=== PATIENT | female | born 1955 | race Caucasian/White ===

== ENCOUNTER → 2017-09-02 | Outpatient (CLI) | payer MEDICAID ==
--- NOTE | 2017-09-04 09:15 | MM ---
Reason for exam: screening (asymptomatic). Last mammogram was performed 1 year and 1 month ago. History: Patient is postmenopausal. Physical Findings: A clinical breast exam by your physician is recommended on an annual basis and results should be correlated with mammographic findings. MG Screening Mammo w CAD Bilateral CC and MLO view(s) were taken. Prior study comparison: August 11, 2016, bilateral MG screening mammo w CAD. August 09, 2015, bilateral MG screening mammo w CAD. The breast tissue is heterogeneously dense. This may lower the sensitivity of mammography. No suspicious abnormality in the right breast. Distortion is seen in the outer left breast at middle depth although the asymmetry appears similar to the exam of 2013. Additional views will be performed. This finding is changed when compared with previous exams. ASSESSMENT: Incomplete: need additional imaging evaluation, BI-RAD 0 RECOMMENDATION: Special view mammogram of the left breast. (spot CC) If lesion persists on supplemental views, image directed ultrasound is recommended. [facility] will attempt to contact patient to return for supplemental views and ultrasound if indicated.
== END | disposition home or self-care (01) ==
LOC: RADMAMWWP 11:11
PROVIDERS: ATTEND Obstetrics & Gynecology
DX: Z12.31 Encounter for screening mammogram for malignant neoplasm of breast (principal)

== ENCOUNTER → 2017-09-08 | Outpatient (CLI) | payer MEDICAID ==
--- NOTE | 2017-09-09 07:14 | MM ---
Reason for exam: additional evaluation requested from abnormal screening. Last mammogram was performed less than 1 month ago. History: Patient is postmenopausal. Physical Findings: Nurse did not find any significant physical abnormalities on exam. MG Work Up Mamm w CAD LT ML, spot compression CC, and spot compression MLO view(s) were taken of the left breast. Prior study comparison: September 02, 2017, bilateral MG screening mammo w CAD. August 11, 2016, bilateral MG screening mammo w CAD. August 09, 2015, bilateral MG screening mammo w CAD. August 08, 2014, bilateral MG screening mammo w CAD. July 20, 2013, bilateral digital screening mammo w/CAD. The breast tissue is heterogeneously dense. This may lower the sensitivity of mammography. The questioned distortion laterally disperses on additional views. These results were verbally communicated with the patient and result sheet given to the patient on 09/08/17. ASSESSMENT: Negative, BI-RAD 1 RECOMMENDATION: Routine screening mammogram of both breasts in 1 year.
== END | disposition home or self-care (01) ==
LOC: RADMAMWWP 13:31
PROVIDERS: ATTEND Obstetrics & Gynecology
DX: R92.8 Other abnormal and inconclusive findings on diagnostic imaging of breast (principal)

== ENCOUNTER → 2017-09-09 | Outpatient (CLI) | payer MEDICAID ==
--- NOTE | 2017-09-09 14:33 | BD ---
EXAMINATION TYPE: MG DEXA axial skeleton. DATE OF EXAM: 09/09/2017 COMPARISON: 2014 CLINICAL HISTORY: disorder of bone Height: 5'6 Weight: 186 FRAX RISK QUESTIONS: Alcohol (3 or more units per day): no Family History (Parent hip fracture): no Glucocorticoids (More than 3mos): no (Ex: prednisone, prednisolone, methylprednisolone, dexamethasone, and hydrocortisone). History of Fracture in Adulthood: yes Secondary Osteoporosis: 1. Type 1 Diabetes: no 2. Hyperthyroidism: no 3. Menopause before 45: no 4. Malnutrition: no 5. Chronic liver disease: no Rheumatoid Arthritis: no Current Tobacco Use: no RISK FACTORS HISTORY OF: History of Wrist Fracture: RT When: 2002 Surgery to )/Wrist (right/ When: 2002 Postmenopausal woman: MEDICATIONS: Additional Medications: blood pressure Additional History: EXAM MEASUREMENTS: Bone mineral densitometry was performed using the [employer] System. Bone mineral density as measured about the Lumbar spine is: ----- L1-L4(G/cm2): 1.409 T Score Values are as follows: ----- L2: 0.6 ----- L3: 2.4 ----- L4: 2.7 ----- L1-L4:1.9 Bone mineral density has: Decreased -4.1% since study of: 08/09/2015 Bone mineral density about the R hip (g/cm2): 0.882 Bone mineral density about the L hip (g/cm2): 0.879 T Score values are as follows: -----R Neck: -1.1 -----L Neck: -1.1 -----R Total: -0.3 -----L Total: -0.4 Bone mineral density has: Increased 3.3% since study of: 08/09/2015 IMPRESSION: Osteopenia (T Score between -2.5 and -1) as noted by T score values:Khurram Hips There is slightly increased risk of fracture and the patient may be considered for treatment. Re-Screen 2-5 years. NOTE: T-SCORE=SD OF THE YOUNG ADULT MEAN.
== END | disposition home or self-care (01) ==
LOC: RADBDWWP 08:39
PROVIDERS: ATTEND Obstetrics & Gynecology
DX: M85.89 Other specified disorders of bone density and structure, multiple sites (principal)
CPT/HCPCS: 77080

== ENCOUNTER → 2018-09-28 | Outpatient (CLI) | payer MEDICAID ==
--- NOTE | 2018-09-30 10:43 | MM ---
Reason for exam: screening (asymptomatic). Last mammogram was performed 1 year and 1 month ago. History: Patient is postmenopausal. Physical Findings: A clinical breast exam by your physician is recommended on an annual basis and results should be correlated with mammographic findings. MG 3D Screening Mammo W/Cad Bilateral CC and MLO view(s) were taken. Prior study comparison: September 08, 2017, left breast MG work up mamm w CAD LT. September 02, 2017, bilateral MG screening mammo w CAD. The breast tissue is heterogeneously dense. This may lower the sensitivity of mammography. No suspicious abnormality. No significant changes when compared with prior studies. ASSESSMENT: Negative, BI-RAD 1 RECOMMENDATION: Routine screening mammogram of both breasts in 1 year.
== END ==
LOC: RADMAMWWP 07:13
PROVIDERS: ATTEND Obstetrics & Gynecology
DX: Z12.31 Encounter for screening mammogram for malignant neoplasm of breast (principal)
CPT/HCPCS: 77063; 77067

== ENCOUNTER → 2019-10-04 | Outpatient (CLI) | payer MEDICAID ==
--- NOTE | 2019-10-04 08:50 | BD ---
EXAMINATION TYPE: Axial Bone Density DATE OF EXAM: 10/04/2019 COMPARISON: 09/09/2017 CLINICAL HISTORY: Z 13.820 Height: 66 in Weight: 192 FRAX RISK QUESTIONS: Alcohol (3 or more units per day): no Family History (Parent hip fracture): no Glucocorticoids (More than 3mos): no (Ex: prednisone, prednisolone, methylprednisolone, dexamethasone, and hydrocortisone). History of Fracture in Adulthood: yes Secondary Osteoporosis: 1. Type 1 Diabetes: no 2. Hyperthyroidism: no 3. Menopause before 45: no 4. Malnutrition: no 5. Chronic liver disease: no Rheumatoid Arthritis: no Current Tobacco Use: no RISK FACTORS HISTORY OF: History of Wrist Fracture: yes, right When: 2002 Surgery Wrist (right): yes When: 2002 Family History of Osteoporosis: yes, mother Active: yes Diet low in dairy products/other sources of calcium: no Postmenopausal woman: yes Take estrogen and/or progesterone medications: no Lost more than 2 inches in height since high school: no Frequent falls: no Poor Health: no Hyperparathyroidism: no Adrenal Insufficiency: no MEDICATIONS: Prednisone or other steroids: no Thyroid Medications:no Osteoporosis Medications: no Additional Medications: blood pressure , calcium Additional History: EXAM MEASUREMENTS: Bone mineral densitometry was performed using the [employer] System. Bone mineral density as measured about the Lumbar spine is: ----- L1-L4(G/cm2): 1.404 T Score Values are as follows: ----- L2: 0.5 ----- L3: 2.1 ----- L4: 3.1 ----- L1-L4: 1.9 Bone mineral density has: Decreased -0.3% since study of: 09/09/2017 Bone mineral density about the R hip (g/cm2): 0.859 Bone mineral density about the L hip (g/cm2): 0.846 T Score values are as follows: -----R Neck: -1.3 -----L Neck: -1.4 -----R Total: -0.6 -----L Total: -0.7 Bone mineral density has: Decreased -4.0% since study of: 09/09/2017 IMPRESSION: Osteopenia (T Score between -2.5 and -1). There is slightly increased risk of fracture and the patient may be considered for treatment. Re-Screen 2-5 years. NOTE: T-SCORE=SD OF THE YOUNG ADULT MEAN.
--- NOTE | 2019-10-04 11:08 | MM ---
Reason for exam: screening (asymptomatic). Last mammogram was performed 1 year ago. History: Patient is postmenopausal. Physical Findings: A clinical breast exam by your physician is recommended on an annual basis and results should be correlated with mammographic findings. MG 3D Screening Mammo W/Cad Bilateral CC and MLO view(s) were taken. Prior study comparison: September 28, 2018, bilateral MG 3d screening mammo w/cad. September 08, 2017, left breast MG work up mamm w CAD LT. The breast tissue is heterogeneously dense. This may lower the sensitivity of mammography. Finding #1: There is a 8-9 mm circumscribed lobulated mass located 5 cm from the nipple in the lower inner quadrant, anterior position of the right breast CC 28/73 and MLO 46/78. Finding #2: There are typically benign round calcifications in both breasts.Asymmetric breast tissue in the left axilla. There is no discrete abnormality. ASSESSMENT: Incomplete: need additional imaging evaluation, BI-RAD 0 RECOMMENDATION: Ultrasound of the right breast. [facility] will attempt to contact patient to return for ultrasound.
== END | disposition home or self-care (01) ==
LOC: RADMAMWWP 07:27
PROVIDERS: ATTEND Obstetrics & Gynecology
DX: Z12.31 Encounter for screening mammogram for malignant neoplasm of breast (principal); M85.88 Other specified disorders of bone density and structure, other site
CPT/HCPCS: 77063; 77067; 77080

== ENCOUNTER → 2019-10-07 | Outpatient (CLI) | payer MEDICAID ==
--- NOTE | 2019-10-07 13:44 | USB ---
Reason for exam: additional evaluation requested from abnormal screening. History: Patient is postmenopausal. Physical Findings: Nurse did not find any significant physical abnormalities on exam. US Breast Workup Limited RT Right limited breast ultrasound including focal area of concern, retroareolar and axilla demonstrates a 0.6 x 0.5 x 0.4cm oval, cystic cluster at 3 o'clock and duct ectasia at the posterior nipple. These results were verbally communicated with the patient and result sheet given to the patient on 10/07/19. ASSESSMENT: Probably benign, BI-RAD 3 RECOMMENDATION: Follow-up diagnostic mammogram and ultrasound of the right breast in 6 months.
== END | disposition home or self-care (01) ==
LOC: RADUSWWP 10:13
PROVIDERS: ATTEND Obstetrics & Gynecology
DX: R92.8 Other abnormal and inconclusive findings on diagnostic imaging of breast (principal)

== ENCOUNTER → 2019-12-09 | Day surgery (SDC) | payer MEDICAID ==
[2019-12-06 11:23] VITALS: BMI 28.1
[~2019-12-09] MED LIST: LACTATED RINGERS 1,000 ML IV SCH; LIDOCAINE 1% 20 ML VIAL (10MG/ML) FOR IV START INTRADERMA PRN; PROPOFOL 10 MG/ML 20 ML VIAL IV ONE
[2019-12-09 11:53] VITALS: TEMP 98.4
--- NOTE | 2019-12-09 12:18 | P.GSHP ---
History of Present Illness H&P Date: 12/09/19 Chief Complaint: Screening, history of polyps 64-year-old female here today for colonoscopy. Last colonoscopy a little over 5 years ago. Patient was found to have a tubular adenoma in the sigmoid colon. Otherwise doing well. Here for screening purposes. No family history of colon cancer. Past Medical History Past Medical History: Hypertension Additional Past Medical History / Comment(s): Hx. of HEMORRHOIDS. History of Any Multi-Drug Resistant Organisms: None Reported Additional Past Surgical History / Comment(s): CERVICAL ABLATION. COLONOSCOPY WITH 1 POLYP Past Anesthesia/Blood Transfusion Reactions: Motion Sickness Additional Past Anesthesia/Blood Transfusion Reaction / Comment(s): IN A BOAT OR PLANE Smoking Status: Never smoker - Past Family History Mother Family Medical History: No Reported History Medications and Allergies Home Medications Medication Instructions Recorded Confirmed Type amLODIPine [Norvasc] 5 mg PO DAILY 08/24/14 12/06/19 History Calcium Carbonate [Calcium] 600 mg PO DAILY 12/06/19 12/06/19 History Aspirin [Adult Low Dose Aspirin EC] 1 tab PO DAILY 12/09/19 12/09/19 History Allergies Allergy/AdvReac Type Severity Reaction Status Date / Time No Known Allergies Allergy Verified 12/09/19 11:45 Surgical - Exam Vital Signs Temp Pulse Resp BP Pulse Ox 98.4 F 88 16 161/81 99 12/09/19 11:45 12/09/19 11:45 12/09/19 11:45 12/09/19 11:45 12/09/19 11:45 Physical exam: General: Well-developed, well-nourished HEENT: Normocephalic, sclerae nonicteric Abdomen: Nontender, nondistended Extremities: No edema Neuro: Alert and oriented Assessment and Plan (1) Colon cancer screening Narrative/Plan: Will proceed with colonoscopy at this time Current Visit: Yes Status: Acute Code(s): Z12.11 - ENCOUNTER FOR SCREENING FOR MALIGNANT NEOPLASM OF COLON SNOMED Code(s): 219775130
--- NOTE | 2019-12-09 12:33 | P.PCN ---
Date of Procedure: 12/09/19 Procedure(s) Performed: PREOPERATIVE DIAGNOSIS: Colon cancer screening, history of adenoma POSTOPERATIVE DIAGNOSIS: Sigmoid colon polyp PROCEDURE: Colonoscopy with snare polypectomy ANESTHESIA: MAC SURGEON: Shmuel Jensen M.D. SPECIMENS: Polyp ENDOSCOPIC PROCEDURE: The patient was placed on the endoscopy table in the left decubitus position. The Olympus colonoscope was inserted into the anus and passed under direct visualization to the base of the cecum. The appendiceal orifice was visualized. From that point the scope was slowly withdrawn inspecting all surfaces carefully. There were no neoplastic inflammatory or polypoid lesions throughout the cecum, ascending, transverse, or descending colo n. In the sigmoid there was noted be a small polyp that was removed using the snare with cautery technique. The remainder of the sigmoid and rectum was normal. There was no visible diverticulosis. Digital rectal examination was normal. The patient was taken to the recovery room in stable condition per anesthesia guidelines. RECOMMENDATIONS: Await biopsy results. Recommend follow-up colonoscopy 5 years.
[2019-12-09 13:03] VITALS: BP 125/77; PULSE 74; RESP 16
== END | disposition home or self-care (01) ==
LOC: ORWHC2ENDO 11:16
PROVIDERS: ATTEND Surgery
DX: Z12.11 Encounter for screening for malignant neoplasm of colon (principal); D12.5 Benign neoplasm of sigmoid colon; I10 Essential (primary) hypertension; Z86.010 Personal history of colon polyps; Z87.19 Personal history of other diseases of the digestive system; Z79.82 Long term (current) use of aspirin; Z79.899 Other long term (current) drug therapy
CPT/HCPCS: 88305; 45385; J2704

== ENCOUNTER → 2020-04-19 | Outpatient (CLI) | payer MEDICAID ==
--- NOTE | 2020-04-20 08:19 | MM ---
Reason for exam: follow-up at short interval from prior study. Last mammogram was performed 7 months ago. History: Patient is postmenopausal. Physical Findings: Nurse did not find any significant physical abnormalities on exam. MG 3D Diag Mammo W/Cad RT CC, MLO, XCCL, and ML view(s) were taken of the right breast. Prior study comparison: October 04, 2019, bilateral MG 3d screening mammo w/cad. September 28, 2018, bilateral MG 3d screening mammo w/cad. The breast tissue is heterogeneously dense. This may lower the sensitivity of mammography. Central asymmetric density on CC partially disperses. No correlate on MLO or LAT, 6 month follow up. Medial asymmetric density unchanged from older priors, less pronounced from 10/04/19. These results were verbally communicated with the patient and result sheet given to the patient on 04/19/20. ASSESSMENT: Incomplete: need additional imaging evaluation, BI-RAD 0 RECOMMENDATION: Ultrasound of the right breast. (as ordered)
--- NOTE | 2020-04-20 08:23 | USB ---
Reason for exam: follow-up at short interval from prior study. History: Patient is postmenopausal. US Breast RT Right complete breast ultrasound includes all four quadrants, the retroareolar region and axilla. Finding demonstrates a 0.3 x 0.4 x 0.4cm cystic, benign lesion at 3 o'clock. No other solid or cystic lesion. These results were verbally communicated with the patient and result sheet given to the patient on 04/19/20. ASSESSMENT: Probably benign, BI-RAD 3 RECOMMENDATION: Follow-up diagnostic mammogram of both breasts in 5 months.
== END | disposition home or self-care (01) ==
LOC: RADMAMWWP 13:31
PROVIDERS: ATTEND Obstetrics & Gynecology
DX: R92.8 Other abnormal and inconclusive findings on diagnostic imaging of breast (principal)
CPT/HCPCS: 77061; 77065

== ENCOUNTER → 2020-08-16 | Outpatient (CLI) | payer MEDICAID ==
[2020-08-16 17:35] LABS: African American GFR (CKD) 68.9 (60.0-200.0); Albumin 4.2 g/dL (3.80-4.90); Albumin/Globulin Ratio 1.75 (1.60-3.17); Anion Gap 9.2 mmol/L (4.00-12.00); Calcium 9.5 mg/dL (8.7-10.3); Carbon Dioxide 26.8 mmol/L (21.6-31.8); Chol/HDL Ratio 3.84; Globulin 2.4 g/dL (1.6-3.3); LDL Cholesterol,Calculated 108.6 mg/dL (0.0-131.0); Non-African American GFR(CKD) 59.5 (60.0-200.0); Potassium 4.4 mmol/L (3.5-5.5); Total Bilirubin 0.6 mg/dL (0.3-1.2); Total Protein 6.6 g/dL (6.2-8.2); VLDL Calculation 19.4 mg/dL (5.00-40.00)
== END | disposition home or self-care (01) ==
LOC: LABWHC1 07:20
PROVIDERS: ATTEND Nurse Practitioner Adult Health
DX: Z00.00 Encounter for general adult medical examination without abnormal findings (principal); I10 Essential (primary) hypertension; M85.9 Disorder of bone density and structure, unspecified
CPT/HCPCS: 36415; 80053; 80061; 82306

== ENCOUNTER → 2020-09-20 | Outpatient (CLI) | payer MEDICAID ==
--- NOTE | 2020-09-20 14:16 | MM ---
Reason for exam: follow-up at short interval from prior study. Last mammogram was performed 5 months ago. History: Patient is postmenopausal. Physical Findings: Nurse did not find any significant physical abnormalities on exam. MG 3D Diag Mammo W/Cad JUWAN Bilateral CC and MLO view(s) were taken. CC with magnification, ML with magnification, spot compression MLO, and ML view(s) were taken of the left breast. Prior study comparison: April 19, 2020, right breast MG 3d diag mammo w/cad RT. October 04, 2019, bilateral MG 3d screening mammo w/cad. There are scattered fibroglandular densities. Nodular asymmetric density right CC view centrally, unchanged for 6 months and maybe present in a different position on older priors. A couple asymmetric densities on the left largely disperse on additional views. Ultrasound recommended for a superior anterior density on lateral. These results were verbally communicated with the patient and result sheet given to the patient on 09/20/20. ASSESSMENT: Incomplete: need additional imaging evaluation, BI-RAD 0 RECOMMENDATION: Ultrasound of the left breast. (10-2 o'clock)
--- NOTE | 2020-09-20 14:18 | USB ---
Reason for exam: additional evaluation requested from abnormal screening. History: Patient is postmenopausal. US Breast Limited LT Left limited breast ultrasound including focal area of concern, retroareolar and axilla demonstrates a 4 x 3 x 4mm lobular, hypoechoic, lobulated lesion at 11 o'clock, possible cyst with debris. 6 month follow up recommended. These results were verbally communicated with the patient and result sheet given to the patient on 09/20/20. ASSESSMENT: Probably benign, BI-RAD 3 RECOMMENDATION: Follow-up diagnostic mammogram and ultrasound of the left breast in 6 months. (particular attention 11 o'clock)
== END | disposition home or self-care (01) ==
LOC: RADMAMWWP 10:16
PROVIDERS: ATTEND Obstetrics & Gynecology
DX: R92.8 Other abnormal and inconclusive findings on diagnostic imaging of breast (principal)
CPT/HCPCS: 77062; 77066

== ENCOUNTER → 2021-04-10 | Outpatient (CLI) | payer MEDICAID ==
--- NOTE | 2021-04-10 15:15 | USB ---
EXAMINATION TYPE: US breast limited LT DATE OF EXAM: 04/10/2021 COMPARISON: 09/20/2020, mammogram same date CLINICAL HISTORY: R92.8 ABN MAMMO. Findings: Left breast was scanned with ultrasound from 9-11 o'clock and in the retroareolar region. In the left breast at 11:00, there is a 0.5 x 0.3 x 0.4 cm multilobulated hypoechoic lesion likely representing a cluster of cysts and not significantly changed since September 2020. IMPRESSION: No significant change in the likely cluster of cysts in the left breast at 11:00. Follow-up ultrasoun d is recommended in 6 months when the patient is also due for her bilateral mammogram. BI-RADS 3, probably benign.
--- NOTE | 2021-04-11 08:49 | MM ---
Reason for exam: follow-up at short interval from prior study. Last mammogram was performed 7 months ago. History: Patient is postmenopausal. Physical Findings: Nurse did not find any significant physical abnormalities on exam. MG 3D Diag Mammo W/Cad LT CC, MLO, and XCCL view(s) were taken of the left breast. Prior study comparison: September 20, 2020, bilateral MG 3d diag mammo w/cad JUWAN. April 19, 2020, right breast MG 3d diag mammo w/cad RT. There are scattered fibroglandular densities. These results were verbally communicated with the patient and result sheet given to the patient on 04/10/21. ASSESSMENT: Incomplete: need additional imaging evaluation, BI-RAD 0 RECOMMENDATION: Ultrasound of the left breast. (ultrasound as per prior ultrasound report)
== END | disposition home or self-care (01) ==
LOC: RADMAMWWP 14:13
PROVIDERS: ATTEND Obstetrics & Gynecology
DX: N64.89 Other specified disorders of breast (principal); Z78.0 Asymptomatic menopausal state; R92.8 Other abnormal and inconclusive findings on diagnostic imaging of breast
CPT/HCPCS: 77061; 77065

== ENCOUNTER → 2021-10-02 | Outpatient (CLI) | payer MEDICAID ==
--- NOTE | 2021-10-02 09:21 | MM ---
Reason for exam: additional evaluation requested from prior study. Last mammogram was performed 6 months ago. History: Patient is postmenopausal. Physical Findings: Nurse did not find any significant physical abnormalities on exam. MG 3D Diag Mammo W/Cad JUWAN Bilateral CC and MLO view(s) were taken. Prior study comparison: April 10, 2021, left breast MG 3d diag mammo w/cad LT. September 20, 2020, bilateral MG 3d diag mammo w/cad JUWAN. Benign appearing calcifications in the left breast. These results were verbally communicated with the patient and result sheet given to the patient on 10/02/21. ASSESSMENT: Benign, BI-RAD 2 RECOMMENDATION: Routine screening mammogram of both breasts in 1 year.
--- NOTE | 2021-10-02 09:22 | USB ---
Reason for exam: follow-up at short interval from prior study. History: Patient is postmenopausal. US Breast Limited LT Left limited breast ultrasound including focal area of concern, retroareolar and axilla demonstrates a 5 x 3 x 4mm lobular, cystic lesion at 11 o'clock, unchanged from previous. These results were verbally communicated with the patient and result sheet given to the patient on 10/02/21. ASSESSMENT: Benign, BI-RAD 2 RECOMMENDATION: Routine screening mammogram of both breasts in 1 year.
== END | disposition home or self-care (01) ==
LOC: RADMAMWWP 07:10
PROVIDERS: ATTEND Obstetrics & Gynecology
DX: N60.02 Solitary cyst of left breast (principal); R92.1 Mammographic calcification found on diagnostic imaging of breast; Z78.0 Asymptomatic menopausal state
CPT/HCPCS: 77062; 77066

== ENCOUNTER → 2022-09-16 | Outpatient (CLI) | payer MEDICARE ==
[2022-09-16 15:06] LABS: Basophils # (A) 0.1 k/uL (0-0.2); Basophils % (A) 1 %; Eosinophils # (A) 0.1 k/uL (0-0.7); Eosinophils % (A) 2 %; HCT 46.3 % (34.0-46.0); HGB 15.8 gm/dL (11.4-16.0); Lymphocytes % (A) 20 %; MCH 31.8 pg (25.0-35.0); MCHC 34.2 g/dL (31.0-37.0); Mean Platelet Volume 7.2; Monocytes # (A) 0.3 k/uL (0-1.0); Monocytes % (A) 5 %; Neutrophils # (A) 3.6 k/uL (1.3-7.7); Neutrophils % (A) 70 %; Platelet Count 227 k/uL (150-450); RBC 4.98 m/uL (3.80-5.40); RDW 11.9 % (11.5-15.5); WBC 5.1 k/uL (3.8-10.6)
[2022-09-16 15:12] LABS: ALT 26 U/L (4-34); AST 32 U/L (14-36); African American GFR (CKD) >90 (>60 ml/min/1.73 sqM); Albumin 4.5 g/dL (3.5-5.0); Albumin/Globulin Ratio 1.6; Alkaline Phosphatase 101 U/L (38-126); Anion Gap 6 mmol/L; Blood Urea Nitrogen 20 mg/dL (7-17); Calcium 9.5 mg/dL (8.4-10.2); Carbon Dioxide 28 mmol/L (22-30); Chloride 105 mmol/L (98-107); Globulin 2.8 g/dL; Glucose 90 mg/dL (74-99); Non-African American GFR(CKD) 83 (>60 ml/min/1.73 sqM); Potassium 3.9 mmol/L (3.5-5.1); Sodium 139 mmol/L (137-145); Total Bilirubin 0.7 mg/dL (0.2-1.3); Total Protein 7.3 g/dL (6.3-8.2)
--- NOTE | 2022-09-16 16:48 | CT ---
EXAMINATION TYPE: CT angio chest DATE OF EXAM: 09/16/2022 COMPARISON: NONE HISTORY: elevated blood pressure CT DLP: 708.4 mGycm. Automated Exposure Control for Dose Reduction was Utilized. CONTRAST: CTA scan of the thorax is performed without and with IV Contrast, patient injected with 100 mL of Iso kodak 370, pulmonary embolism protocol. MIP Images are created on CT scanner and reviewed. FINDINGS: LUNGS: The lungs are grossly clear, there is no concerning parenchymal mass or nodule identified. T here is no pleural effusion or pneumothorax seen. The tracheobronchial tree is patent. MEDIASTINUM: There is satisfactory enhancement of central pulmonary arteries which are not suspicious ly dilated. There is normal three-vessel origin from aortic arch without significant plaque or stenos is. No thoracic aortic aneurysm or dissection. There are no greater than 1 cm hilar or mediastinal l ymph nodes. No cardiomegaly or pericardial effusion is seen. OTHER: There are 2 bilateral renal arteries without significant plaque or stenosis. Some exaggerated thoracic curvature is noted. Incidental benign calcification in the spleen on coronal image 67. Signi ficant narrowing at origin of celiac artery sagittal image 88. Cannot exclude celiac artery compressi on syndrome. IMPRESSION: Source of patient's hypertension not identified. Lungs are clear.
[2022-09-17 02:46] LABS: LDL Cholesterol,Calculated 126.9 mg/dL (0.0-131.0)
== END | disposition home or self-care (01) ==
LOC: RADCTMAIN 14:10
PROVIDERS: ATTEND Internal Medicine
DX: R09.89 Other specified symptoms and signs involving the circulatory and respiratory systems (principal); R03.0 Elevated blood-pressure reading, without diagnosis of hypertension
CPT/HCPCS: 86803; 80061; 80053; 84443; 85025; 82306; 71275; 36415; Q9967

== ENCOUNTER → 2022-10-14 | Outpatient (CLI) | payer MEDICARE ==
--- NOTE | 2022-10-14 17:26 | BD ---
EXAMINATION TYPE: Axial Bone Density DATE OF EXAM: 10/14/2022 CLINICAL HISTORY: 67 years year old Female. ICD-10 CODE: [id number] OSTEOPENIA Height: 5 FT 5 1/2 IN Weight: 196 FRAX RISK QUESTIONS: Alcohol (3 or more units per day): NO Family History (Parent hip fracture): NO Glucocorticoids (More than 3mos): NO (Ex: prednisone, prednisolone, methylprednisolone, dexamethasone, and hydrocortisone). History of Fracture in Adulthood: YES Secondary Osteoporosis: 1. Type 1 Diabetes: NO 2. Hyperthyroidism: NO 3. Menopause before 45: NO 4. Malnutrition: NO 5. Chronic liver disease: NO Rheumatoid Arthritis: NO Current Tobacco Use: NO RISK FACTORS HISTORY OF: History of Wrist Fracture: RT WRIST When: 2002 Surgery to Spine/Hip(right/left)/Wrist (right/left): RT WRIST When: 2002 Family History of Osteoporosis: YES Active: YES Diet low in dairy products/other sources of calcium: NO Postmenopausal woman: YES Take estrogen and/or progesterone medications: NO Lost more than 2 inches in height since high school: NO Frequent falls: NO Poor Health: GOOD Hyperparathyroidism: NO Adrenal Insufficiency: NO MEDICATIONS: Additional Medications: AMLODIPINE, Additional History: EXAM MEASUREMENTS: Bone mineral densitometry was performed using the [email or web address] System. Bone mineral density as measured about the Lumbar spine is: ----- L1-L4(G/cm2): 1.365 T Score Values are as follows: ----- L1: 0.4 ----- L2: 0.2 ----- L3: 1.8 ----- L4: 2.9 ----- L1-L4: 1.5 Bone mineral density has: DECREASED -1.8 % since study of: 2018 Bone mineral density about the R hip (g/cm2): 0.834 Bone mineral density about the L hip (g/cm2): 0.826 T Score values are as follows: -----R Neck: -1.5 -----L Neck: -1.5 -----R Total: -1.0 -----L Total: -0.9 Bone mineral density has: DECREASED -4.0 % since study of: 2018 FRAX%s: The graph provided illustrates a 14.4 % chance for a major osteoporotic fx and a 1.6 % chance for the hips probability for fx in 10 years time. IMPRESSION: Osteopenia (T Score between -2.5 and -1). There is slightly increased risk of fracture and the patient may be considered for treatment. Re-Screen 2-5 years. NOTE: T-SCORE=SD OF THE YOUNG ADULT MEAN.
--- NOTE | 2022-10-15 11:04 | MM ---
Reason for Exam: Screening (asymptomatic). Last screening mammogram was performed 12 month(s) ago. Patient History: Menarche at age 14. First Full-Term at age 23. Postmenopausal. Risk Values: Nataly 5 year model risk: 1.5%. NCI Lifetime model risk: 5.4%. Prior Study Comparison: 09/20/2020 Bilateral Diagnostic Mammogram, [facility]. 04/10/2021 Left Diagnostic Mammogram, [facility]. 10/02/2021 Bilateral Diagnostic Mammogram, [facility]. Tissue Density: There are scattered fibroglandular densities. Findings: Analyzed By CAD. Pattern appears stable. Benign calcifications within the right breast. No suspicious groups of microcalcifications, spiculated or lobular masses, architectural distortion or other secondary signs of malignancy are mammographically apparent. Overall Assessment: Benign, BI-RAD 2 Management: Screening Mammogram of both breasts in 1 year. A negative mammogram report should not preclude additional follow up of suspicious palpable abnormalities. Patient should continue monthly self breast exam. A clinical breast exam by your physician is recommended on an annual basis and results should be correlated with mammographic findings. Electronically signed and approved by: Marco Ortiz D.O. Radiologis
== END | disposition home or self-care (01) ==
LOC: RADMAMWWP 13:23
PROVIDERS: ATTEND Obstetrics & Gynecology
DX: Z12.31 Encounter for screening mammogram for malignant neoplasm of breast (principal); M85.88 Other specified disorders of bone density and structure, other site; M85.89 Other specified disorders of bone density and structure, multiple sites; Z78.0 Asymptomatic menopausal state
CPT/HCPCS: 77063; 77067; 77080

== ENCOUNTER → 2023-11-09 | Outpatient (CLI) | payer MEDICARE ==
--- NOTE | 2023-11-10 09:14 | MM ---
Reason for Exam: Screening (asymptomatic). Last mammogram was performed 1 year(s) and 1 month(s) ago. Patient History: Menarche at age 14. First Full-Term at age 23. Postmenopausal. Risk Values: Nataly 5 year model risk: 1.5%. NCI Lifetime model risk: 5.2%. Prior Study Comparison: 04/10/2021 Left Diagnostic Mammogram, [facility]. 10/02/2021 Bilateral Diagnostic Mammogram, [facility]. 10/14/2022 Bilateral MG 3D screening mammo w/cad, [facility]. Tissue Density: The breast tissue is heterogeneously dense. This may lower the sensitivity of mammography. Findings: Analyzed By CAD. Chronic nodularity right breast. Unchanged areas of asymmetric density on the left. There is no suspicious group of microcalcifications or new suspicious mass in either breast. Overall Assessment: Benign, BI-RAD 2 Management: Screening Mammogram of both breasts in 1 year. . Patient should continue monthly self-breast exams. A clinical breast exam by your physician is recommended on an annual basis. This exam should not preclude additional follow-up of suspicious palpable abnormalities. Note on Nataly scores and lifetime risk: 1. A Nataly score greater than 3% is considered moderate risk. If this is the case, consider specialist referral to assess eligibility for a risk reducing agent. 2. If overall lifetime risk for the development of breast cancer is 20% or higher, the patient may qualify for future screening with alternating mammogram and breast MRI. Electronically signed and approved by: Janis Jiménez M.D. Radiologist
== END | disposition home or self-care (01) ==
LOC: RADMAMWWP 08:13
PROVIDERS: ATTEND Obstetrics & Gynecology
DX: Z12.31 Encounter for screening mammogram for malignant neoplasm of breast (principal); Z78.0 Asymptomatic menopausal state
CPT/HCPCS: 77063; 77067

== ENCOUNTER → 2025-01-18 | Outpatient (CLI) | payer MEDICARE ==
--- NOTE | 2025-01-18 08:15 | MM ---
Reason for Exam: Screening (asymptomatic). Last mammogram was performed 1 year(s) and 3 month(s) ago. Patient History: Menarche at age 14. First Full-Term at age 23. Postmenopausal. Risk Values: Nataly 5 year model risk: 1.5%. NCI Lifetime model risk: 5.0%. Prior Study Comparison: 10/02/2021 Bilateral Diagnostic Mammogram, [facility]. 10/14/2022 Bilateral MG 3D screening mammo w/cad, [facility]. 11/09/2023 Bilateral MG 3D screening mammo w/cad, [facility]. Tissue Density: The breasts are heterogeneously dense, which may obscure small masses. Findings: Analyzed By CAD. Nodular density inner upper left breast at the approximate 11:00 position 4.5 cm from the nipple measuring 1.2 cm. Additional views and ultrasound recommended. No suspicious calcifications within either breast. Overall Assessment: Incomplete: need additional imaging evaluation, BI-RAD 0 Management: Diagnostic Mammogram of the left breast. . Patient should continue monthly self-breast exams. A clinical breast exam by your physician is recommended on an annual basis. This exam should not preclude additional follow-up of suspicious palpable abnormalities. Note on Nataly scores and lifetime risk: 1. A Nataly score greater than 3% is considered moderate risk. If this is the case, consider specialist referral to assess eligibility for a risk reducing agent. 2. If overall lifetime risk for the development of breast cancer is 20% or higher, the patient may qualify for future screening with alternating mammogram and breast MRI. [facility], , 01/18/2025 8:11 AM. Electronically signed and approved by: Jacob Paredes M.D. Radiologis
--- NOTE | 2025-01-18 12:56 | BD ---
EXAMINATION TYPE: Axial Bone Density DATE OF EXAM: 01/18/2025 CLINICAL HISTORY: 69 years old Female. ICD-10 CODE: M85.80 OSTEOPENIA , Additional History: Height: 65.4 Weight: 194 FRAX RISK QUESTIONS: Family History (Parent hip fracture): yes History of Fracture in Adulthood: yes 3. Menopause before 45: no, at 54 RISK FACTORS HISTORY OF: History of Wrist Fracture: yes, right wrist with surgical repair 2002 MEDICATIONS: amlodipine, calcium, multivitamin, aspirin, EXAM MEASUREMENTS: Bone mineral densitometry was performed using the [employer]. Bone mineral density as measured about the Lumbar spine is: ----- L1-L4(G/cm2): 1.320 T Score Values are as follows: ----- L1: -0.4 ----- L2: 0.0 ----- L3: 1.5 ----- L4: 2.6 ----- L1-L4: 1.2 Z Score Values are as follows: ----- L1: 0.5 ----- L2: 0.9 ----- L3: 2.4 ----- L4: 3.4 ----- L1-L4: 2.0 Bone mineral density has: Decreased -3.3% since study of: 10.14.2022 Bone mineral density about the R hip (g/cm2): 0.903 Bone mineral density about the L hip (g/cm2): 0.885 T Score values are as follows: -----R Neck: -1.3 -----L Neck: -1.3 -----R Total: -0.8 -----L Total: -1.0 Z Score values are as follows: -----R Neck: -0.2 -----L Neck: -0.2 -----R Total: 0.0 -----L Total: -0.1 Bone mineral density has: Increased 0.7% since study of: 10.14.2022 FRAX%s: The graph provided illustrates a 14.2% chance for a major osteoporotic fx and a 1.5% chance f or the hips probability for fx in 10 years time. IMPRESSION: Normal (Values between +1 and -1 indicate normal bone mass). Consider repeating this study in 5 year s or sooner if there is some new clinical indication. NOTE: T-SCORE=SD OF THE YOUNG ADULT MEAN. [facility], , 01/18/2025 12:54 PM
== END | disposition home or self-care (01) ==
LOC: RADMAMWWP 07:51
PROVIDERS: ATTEND Internal Medicine
DX: Z12.31 Encounter for screening mammogram for malignant neoplasm of breast (principal); R92.333 Mammographic heterogeneous density, bilateral breasts; M85.89 Other specified disorders of bone density and structure, multiple sites; Z78.0 Asymptomatic menopausal state
CPT/HCPCS: 77063; 77067; 77080

== ENCOUNTER → 2025-01-20 | Outpatient (CLI) | payer MEDICARE ==
--- NOTE | 2025-01-20 08:17 | MM ---
Reason for Exam: Additional evaluation requested from abnormal screening. Last screening mammogram was performed less than 1 month ago. Patient History: Menarche at age 14. First Full-Term at age 23. Postmenopausal. Risk Values: Nataly 5 year model risk: 1.5%. NCI Lifetime model risk: 5.0%. Prior Study Comparison: 10/14/2022 Bilateral MG 3D screening mammo w/cad, [facility]. 11/09/2023 Bilateral MG 3D screening mammo w/cad, [facility]. 01/18/2025 Bilateral MG 3D screening mammo w/cad, [facility]. Tissue Density: Left: The breasts are heterogeneously dense, which may obscure small masses. Findings: Analyzed By CAD. Persistent 12 mm nodule at the approximate 10 to 11:00 position left breast 5 cm from the nipple. Ultrasound is recommended. Overall Assessment: Incomplete: need additional imaging evaluation, BI-RAD 0 Management: Diagnostic Breast Ultrasound of the left breast. . Results were given to the patient verbally at the time of exam. Patient should continue monthly self-breast exams. A clinical breast exam by your physician is recommended on an annual basis. This exam should not preclude additional follow-up of suspicious palpable abnormalities. Note on Nataly scores and lifetime risk: 1. A Nataly score greater than 3% is considered moderate risk. If this is the case, consider specialist referral to assess eligibility for a risk reducing agent. 2. If overall lifetime risk for the development of breast cancer is 20% or higher, the patient may qualify for future screening with alternating mammogram and breast MRI. [facility], , 01/20/2025 8:14 AM. Electronically signed and approved by: Jacob Paredes M.D. Radiologis
--- NOTE | 2025-01-20 08:44 | USB ---
Reason for Exam: Additional evaluation requested from abnormal screening. Patient History: Menarche at age 14. First Full-Term at age 23. Postmenopausal. Risk Values: Nataly 5 year model risk: 1.5%. NCI Lifetime model risk: 5.0%. Technique: Method: Targeted. Prior Study Comparison: 10/14/2022 Bilateral MG 3D screening mammo w/cad, [facility]. 11/09/2023 Bilateral MG 3D screening mammo w/cad, [facility]. 01/18/2025 Bilateral MG 3D screening mammo w/cad, [facility]. Findings: The upper inner quadrant of the left breast, the axilla of the left breast and the retroareolar of the left breast were scanned. A complete US of all four quadrants of the breast and retro-areolar region were reviewed. No solid or cystic masses are identified.. There is a simple cyst at the left 11:00 location 5 cm from the nipple however adjacent to the cyst is a small nodular density measuring 4.2 millimeters. Tissue diagnosis is recommended. No additional solid nodules seen. Axilla is negative. Overall Assessment: Suspicious, BI-RAD 4 Management: Ultrasound Core Biopsy of the left breast. A clinical breast exam by your physician is recommended on an annual basis and results should be correlated with mammographic findings. This exam should not preclude additional follow-up of suspicious palpable abnormalities. Results were given to the patient verbally at the time of exam. [facility], , 01/20/2025 8:42 AM. Electronically signed and approved by: Jacob Paredes M.D. Radiologis
== END | disposition home or self-care (01) ==
LOC: RADMAMWWP 07:52
PROVIDERS: ATTEND Internal Medicine
DX: R92.8 Other abnormal and inconclusive findings on diagnostic imaging of breast (principal); R92.332 Mammographic heterogeneous density, left breast; N60.02 Solitary cyst of left breast; Z78.0 Asymptomatic menopausal state
CPT/HCPCS: 77061; 77065

== ENCOUNTER → 2025-02-20 | Day surgery (SDC) | payer MEDICARE ==
--- NOTE | 2025-02-23 08:10 | MM ---
Reason for Exam: Post Procedure Mammogram. Last screening mammogram was performed 1 month(s) ago. Patient History: Menarche at age 14. First Full-Term at age 23. Postmenopausal. Risk Values: Nataly 5 year model risk: 1.5%. NCI Lifetime model risk: 5.0%. Prior Study Comparison: 11/09/2023 Bilateral MG 3D screening mammo w/cad, [facility]. 01/18/2025 Bilateral MG 3D screening mammo w/cad, [facility]. 01/20/2025 Left MG 3D work up w/cad LT, [facility]. Tissue Density: Left: The breasts are heterogeneously dense, which may obscure small masses. Pathology Description: Location: 11 o'clock. Marker Left Behind. Needle Type: Mammotome Cores: 3 Skin Nicks: 1 Gauge: 13 The procedure of ultrasound guided core biopsy was explained to the patient. Benefits, alternatives, and risks were discussed. An informed consent was then obtained. The patient was placed in supine positioning for imaging and for the procedure. The overlying skin was prepped and draped in usual sterile fashion. Lidocaine buffered with bicarbonate was used as anesthetic into the skin and subcutaneous tissue up to area of concern in the left breast. A cesar was made with surgical scalpel. Under ultrasound guidance, a 12-gauge vacuum assisted biopsy gun device was used to obtain 3 core samples. Following this, a biopsy clip was left in lesion. The patient tolerated the procedure well without any immediate complication. The patient was kept in the radiology department for short stay after the procedure and then discharged home in stable condition. Postprocedure mammogram: The patient was transferred to mammography for physician ordered post procedure mammogram for clip placement verification. Post procedure mammogram demonstrates appropriate placement of clip. Impression: Successful, uncomplicated ultrasound guided core biopsy of area of concern in the left breast, full pathology results to follow. [facility], , 02/20/2025 1:39 PM. Pathology Results: Result: High risk, Intraductual papilloma high risk. Pathology and radiology were reviewed. Findings are concordant. Left breast, 11:00 5 cm from nipple, needle core biopsy: Intraductal papilloma with atypia. Overall Assessment: High risk Assessment: MG diagnostic mammo LT wo CAD. - Left: Suspicious, BI-RAD 4. Management: Surgical Consultation of the left breast. Electronically signed and approved by: Dimitri Stroud, DO
== END ==
LOC: RADUSWWP 11:58
PROVIDERS: ATTEND Surgery
DX: D24.2 Benign neoplasm of left breast (principal); R92.8 Other abnormal and inconclusive findings on diagnostic imaging of breast; Z78.0 Asymptomatic menopausal state
CPT/HCPCS: 88305; 77065; 19083; A4648

== ENCOUNTER → 2025-03-03 | Outpatient (CLI) | payer MEDICARE ==
[2025-03-03 13:46] VITALS: BP 150/86; PULSE 89; RESP 18; TEMP 98.5
--- NOTE | 2025-03-03 14:20 | P.GSCN ---
History of Present Illness Consult date: 03/03/25 Reason for Consult: atypical intraductal papilloma Requesting physician: Ruperto Davis History of present illness: Amara is a 69 year old female seen in consultation for Dr. Davis regarding a biopsy proven intraductal papilloma with atypia. She had a bilateral mammogram on 01-18-25 which led to a left breast ultrasound and biopsy on 02-20-25. This showed an intraductal papilloma with atypia. This was found on a routine mammogram. She has not had any surgery on her breast. She is not complaining of any lumps masses or nodules of concern in either breast. She is not complaining of any recent trauma or infection in the breast. She is not complaining of any recent nipple discharge or skin changes. She did develop some inflammation following the procedure and was put on an antibiotic/cephalexin by her asp net programmer. It is tender and swollen where the procedure was done. Caffeine: 2-3 diet Cokes per day Nicotine: Negative Chocolate: Occasional control pills: never used hormones: none Family History: brother: cancer ? type Hormonal History: menarche: 15 , breast fed: no, age at first : 23 menopause: 51 Surgical History: uterine ablation right wrist surgery Medial History: HTN Social History: Nicotine: Negative Alcohol: Very rare Drugs: Negative Review of Systems - Constitutional Reports sweats - EENT Eyes: denies blurred vision Ears: deny: decreased hearing, tinnitus Ears, nose, mouth and throat: Denies dysphagia - Breasts bilateral: as per HPI - Cardiovascular Denies chest pain, Denies shortness of breath - Respiratory Denies cough, Denies 7 - Gastrointestinal Reports as per HPI - Genitourinary Genitourinary: Denies dysuria, Denies hematuria Menstruation: Reports postmenopausal - Musculoskeletal Reports as per HPI - Integumentary Reports rash, Denies unusual bruising - Neurological Denies headaches, Denies syncope - Psychiatric Reports as per HPI - Endocrine Reports as per HPI - Hematologic/Lymphatic Denies easy bleeding, Denies easy bruising - Allergic/Immunologic Reports as per HPI, Reports seasonal allergies Past Medical History Past Medical History: Hypertension Additional Past Medical History / Comment(s): Hx. of HEMORRHOIDS. History of Any Multi-Drug Resistant Organisms: None Reported Additional Past Surgical History / Comment(s): CERVICAL ABLATION. COLONOSCOPY WITH 1 POLYP Past Anesthesia/Blood Transfusion Reactions: Motion Sickness Additional Past Anesthesia/Blood Transfusion Reaction / Comm: IN A BOAT OR PLANE Past Psychological History: No Psychological Hx Reported Smoking Status: Never smoker Past Alcohol Use History: Rare Past Drug Use History: None Reported - Past Family History Mother Family Medical History: No Reported History Medications and Allergies Home Medications Medication Instructions Recorded Confirmed Type amLODIPine [Norvasc] 10 mg PO DAILY 08/24/14 03/03/25 History Calcium Carbonate [Calcium] 1,200 mg PO DAILY 12/06/19 03/03/25 History Aspirin [Adult Low Dose Aspirin EC] 1 tab PO DAILY 12/09/19 03/03/25 History Allergies Allergy/AdvReac Type Severity Reaction Status Date / Time No Known Allergies Allergy Verified 03/03/25 13:43 Surgical - Exam Vital Signs Temp Pulse Resp BP Pulse Ox 98.5 F 89 18 150/86 96 03/03/25 13:44 03/03/25 13:44 03/03/25 13:44 03/03/25 13:44 03/03/25 13:44 - General no distress - Eyes normal ocular movement - ENT no hearing loss - Neck trachea midline - Respiratory normal respiratory effort - Cardiovascular Rhythm: regular Heart Sounds: normal: S1, S2 - Abdomen Abdomen: soft, non tender, no guarding, no rigid, no rebound - Integumentary normal turgor - Neurologic no disoriented, no combative - Musculoskeletal normal gait - Psychiatric oriented to time, oriented to person, oriented to place, speech is normal, memory intact Breast Exam: BRA: 40DD Inspection: Mild ecchymosis left breast/questionable erythema related to core biopsy Palpation: Right breast: Multi positional exam no dominant masses or nodules of concern Right axilla: No adenopathy of concern Left breast: Multi positional exam probable hematoma at the site of the core biopsy this is approximately 4 x 3 cm in size and there is some mild erythema and ecchymosis related to this site is in the 12 o'clock position of the left breast Left axilla: No adenopathy of concern Results Mammogram and ultrasound as well as post biopsy diagnostic mammogram reviewed and discussed with radiology Dr. Martin Assessment and Plan Assessment: Impression: Left breast intraductal papilloma with atypia from ultrasound core biopsy performed on 02 20 25 Postprocedure hematoma/inflammation of the left breast patient presently on ant ibiotics no fever chills Plan: Left breast needle localization lumpectomy/oncoplastic tissue transfer after recovery from hematoma/inflammation related to core biopsy Risk and benefits of procedure discussed with the patient and her sister. Risk include but are not limited to bleeding, infection, reaction to the anesthetic. That patient understands and wishes to proceed. Additionally if the needle were to move or the area of concern were not to be adequately sampled and further tissue acquisition may be necessary. Consent: I have discussed the risks, benefits and alternative therapies for the above-mentioned procedure and for both sedation/analgesia as well as necessary blood product administration, if indicated, as they pertain to this patient. The patient has indicated understanding and acceptance of the risks and procedures discussed.
== END ==
LOC: WWCWWP 13:21
PROVIDERS: ATTEND Surgery
DX: Z12.31 Encounter for screening mammogram for malignant neoplasm of breast (principal); D24.2 Benign neoplasm of left breast

== ENCOUNTER → 2025-04-27 | Outpatient (CLI) | payer MEDICARE ==
--- NOTE | 2025-04-27 09:33 | P.PN ---
Subjective Progress Note Date: 04/27/25 Principal diagnosis: atypical intraductal papilloma History of Present Illness Consult date: 04-27-25 Reason for Consult: atypical intraductal papilloma Requesting physician: Ruperto Davis History of present illness: Amara is a 69 year old female seen in consultation for Dr. Davis regarding a biopsy proven intraductal papilloma with atypia. She had a bilateral mammogram on 01-18-25 which led to a left breast ultrasound and biopsy on 02-20-25. This showed an intraductal papilloma with atypia. This was found on a routine mammogram. She has not had any surgery on her breast. She is not complaining of any lumps masses or nodules of concern in either breast. She is not complaining of any recent trauma or infection in the breast. She is not complaining of any recent nipple discharge or skin changes. She did develop some inflammation following the procedure and was put on an antibiotic/cephalexin by her hematology nurse. It was tender and swollen where the procedure was done and it was thought she had a hematoma at the site. It has decreased in size. Caffeine: 2-3 diet Cokes per day Nicotine: Negative Chocolate: Occasional control pills: never used hormones: none Family History: brother: cancer ? type Hormonal History: menarche: 15 , breast fed: no, age at first : 23 menopause: 51 Surgical History: uterine ablation right wrist surgery Medial History: HTN Social History: Nicotine: Negative Alcohol: Very rare Drugs: Negative Review of Systems - Constitutional Reports sweats - EENT Eyes: denies blurred vision Ears: deny: decreased hearing, tinnitus Ears, nose, mouth and throat: Denies dysphagia - Breasts bilateral: as per HPI - Cardiovascular Denies chest pain, Denies shortness of breath - Respiratory Denies cough - Gastrointestinal Reports as per HPI - Genitourinary Genitourinary: Denies dysuria, Denies hematuria Menstruation: Reports postmenopausal - Musculoskeletal Reports as per HPI - Integumentary Reports rash, Denies unusual bruising - Neurological Denies headaches, Denies syncope - Psychiatric Reports as per HPI - Endocrine Reports as per HPI - Hematologic/Lymphatic Denies easy bleeding, Denies easy bruising - Allergic/Immunologic Reports as per HPI, Reports seasonal allergies Past Medical History Past Medical History: Hypertension Additional Past Medical History / Comment(s): Hx. of HEMORRHOIDS. History of Any Multi-Drug Resistant Organisms: None Reported Additional Past Surgical History / Comment(s): CERVICAL ABLATION. COLONOSCOPY WITH 1 POLYP Past Anesthesia/Blood Transfusion Reactions: Motion Sickness Additional Past Anesthesia/Blood Transfusion Reaction / Comm: IN A BOAT OR PLANE Past Psychological History: No Psychological Hx Reported Smoking Status: Never smoker Past Alcohol Use History: Rare Past Drug Use History: None Reported - Past Family History Mother Family Medical History: No Reported History Medications and Allergies Home Medications Medication Instructions Recorded Confirmed Type amLODIPine [Norvasc] 10 mg PO DAILY 08/24/14 03/03/25 History Calcium Carbonate [Calcium] 1,200 mg PO DAILY 12/06/19 03/03/25 History Aspirin [Adult Low Dose Aspirin EC] 1 tab PO DAILY 12/09/19 03/03/25 History Allergies Allergy/AdvReac Type Severity Reaction Status Date / Time No Known Allergies Allergy Verified 03/03/25 13:43 Objective - Constitutional General appearance: Present: cooperative - EENT Eyes: Present: EOMI ENT: Present: hearing grossly normal - Neck Neck: Present: normal ROM - Respiratory Respiratory: bilateral: CTA - Cardiovascular Rhythm: regular Heart sounds: normal: S1, S2 - Integumentary Integumentary: Present: normal turgor - Musculoskeletal Musculoskeletal: Present: gait normal - Psychiatric Psychiatric: Present: A&O x's 3, appropriate affect, intact judgment & insight - Additional findings Additional findings: Breast Exam: BRA: 40DD Inspection: bilateral Palpation: Right breast: Multi positional exam no dominant masses or nodules of concern Right axilla: No adenopathy of concern Left breast: Multi positional exam probable hematoma at the site of the core biopsy has reduced in size Left axilla: No adenopathy of concern Assessment and Plan Assessment: Impression: Left breast intraductal papilloma with atypia from ultrasound core biopsy performed on 02 20 25 Postprocedure hematoma/inflammation of the left breast patient presently on antibiotics no fever chills Plan: Left breast needle localization lumpectomy/oncoplastic tissue transfer after recovery from hematoma/inflammation related to core biopsy Personally reviewed mammogram and ultrasound with Dr. Martin and left breast biopsy clip is in the correct location. Risk and benefits of procedure discussed with the patient and her sister. Risk include but are not limited to bleeding, infection, reaction to the anesthetic. That patient understands and wishes to proceed. Additionally if the needle were to move or the area of concern were not to be adequately sampled and further tissue acquisition may be necessary. Consent: I have discussed the risks, benefits and alternative therapies for the above-mentioned procedure and for both sedation/analgesia as well as necessary blood product administration, if indicated, as they pertain to this patient. The patient has indicated understanding and acceptance of the risks and procedures discussed. Additional CC's: Ruperto Davis
[2025-04-27 09:35] VITALS: BP 139/75; PULSE 84; RESP 18; TEMP 98
== END ==
LOC: WWCWWP 08:43
PROVIDERS: ATTEND Surgery
DX: D24.2 Benign neoplasm of left breast (principal)

== ENCOUNTER → 2025-05-02 | Day surgery (SDC) | payer MEDICARE ==
[~2025-05-02] MED LIST changes: +HYDROmorphone 0.5 MG/0.5 ML SYRINGE IVP PRN; +KETOROLAC 15 MG/ML 1 ML VIAL ONE; -LACTATED RINGERS 1,000 ML IV SCH; -LIDOCAINE 1% 20 ML VIAL (10MG/ML) FOR IV START INTRADERMA PRN; +LIDOCAINE 1% INJ 10MG/ML (20 ML MDV) ONE; +METHYLENE BLUE 50 MG, DEXTROSE 5% IN WATER 50 ML MISCELLANE ONE; +MIDAZOLAM 2 MG/2 ML VIAL ONE; +ROCURONIUM 10 MG/ML (5 ML VIAL) IV ONE; +SUCCINYLCHOLINE CHLORIDE 200 MG/10 ML VIAL IV ONE; +fentaNYL (PF) 50 MCG/ML 2 ML AMP ONE
[2025-05-02] MEDS: IV FLUID CONTINUATION 1,000 ML IV ONE (08:51)
[2025-05-02] MEDS: LACTATED RINGERS 1,000 ML IV SCH (09:15)
[2025-05-02] MEDS: LIDOCAINE 1% INJ 10MG/ML (20 ML MDV) SQ ONE ×3 (09:37→15:27)
[2025-05-02] MEDS: SODIUM BICARB 8.4% 50 ML VIAL (1 MEQ/ML) MISCELLANE ONE (09:37)
[2025-05-02] MEDS: METHYLENE BLUE 50 MG/10 ML VIAL MISCELLANE ONE (09:42)
[2025-05-02 09:54] VITALS: TEMP 98
[2025-05-02] MEDS: ACETAMINOPHEN TAB 500 MG TAB PO PRN (10:19)
[2025-05-02] MEDS: ONDANSETRON 4 MG/2 ML VIAL IVP ONE (10:19)
[2025-05-02] MEDS: DEXAMETHASONE SOD PHOSPHATE 4 MG/ML 1 ML VIAL IV ONE (10:19)
[2025-05-02] MEDS: HEPARIN SODIUM,PORCINE 5,000 UNIT/ML 1 ML VIAL SQ PRN (10:19)
--- NOTE | 2025-05-02 15:17 | P.BCAON ---
Date of Procedure: 05/02/25 Preoperative Diagnosis: Atypical intraductal papilloma Postoperative Diagnosis: Same Procedure(s) Performed: Needle localization lumpectomy Anesthesia: IDANIA Surgeon: Maryuri Avila Estimated Blood Loss (ml): 5 IV fluids (ml): 400 Condition: stable Disposition: same day Indications for Procedure: Core biopsy of intraductal papilloma noted to have atypia Operative Findings: Fibrofatty breast tissue Description of Procedure: The patient was first seen in the radiology department for needle localization of the area of concern in the right left breast was performed as well as injection of methylene blue. She was brought to the operative suite. Following induction of anesthesia the left breast was prepped and draped in a sterile fashion. An incision was made and carried down to the shaft of the needle. The area of blue discoloration was identified as well. Wide excision was performed. The specimen was then resected and painted for orientation. Radiograph of the specimen revealed the area of concern had been removed. The wound was evaluated for hemostasis. After we are sure that hemostasis was attained titanium clips were placed. Surgicel and powder form was placed. The edges of the incision were brought together using 3-0 Vicryl suture. Subcutaneous tissue was closed with 3-0 Vicryl suture. Skin was closed using 4-0 Monocryl. 1% lidocaine was used to anesthetize the area of concern 20 cc. All instrument and sponge counts were correct at the end of the case. Patient tolerated the procedure in stable condition.
[2025-05-02 15:49] VITALS: RESP 18
[2025-05-02 16:40] VITALS: BP 136/70; PULSE 82
--- NOTE | 2025-05-10 08:31 | MM ---
Risk Values: Nataly 5 year model risk: 1.8%. NCI Lifetime model risk: 5.9%. Pathology Description: Approach: CC FA Needle Type: 7 cm Kopan The procedure of needle localization with wire placement and than surgical excision was explained to the patient. Benefits, alternatives, and risks were discussed. An informed consent was then obtained. The overlying skin was prepped and draped in usual sterile fashion. Lidocaine buffered with bicarbonate was used as anesthetic into the skin and subcutaneous tissue up to the level of area of concern. A 5 cm needle was used. It was placed via a superior approach under mammographic guidance. Subsequent 90 degrees mammogram show the needle to be in satisfactory position relative to the targeted area. At this point, wire was placed and the needle was withdrawn. The wire was fixed to patient's skin. Images were marked for surgeon. The patient tolerated the procedure well without any immediate complication. The patient was kept in the radiology department for short stay after the procedure and then taken to surgery for surgical excision. Targeted clip and wire are identified in specimen mammogram. The patient was kept in hospital for short stay after the procedure and then discharged home in stable condition. Impression: Successful, uncomplicated needle localization with wire placement and surgical excision of microclip marker in the left breast, full pathology results to follow. [facility], , 05/02/2025 3:22 PM. Pathology Results: Result: High risk, Intraductual papilloma high risk. Pathology and radiology were reviewed. Findings are concordant. LEFT BREAST TISSUE, NEEDLE LOCALIZATION EXCISION: Intraductal papilloma with atypia, margins negative. Background fibrocystic changes and previous biopsy site. Overall Assessment: High risk Management: Diagnostic Mammogram of the left breast in 6 months. Electronically signed and approved by: Jacob Paredes M.D. Radiologis
== END | disposition home or self-care (01) ==
LOC: OR 08:07
PROVIDERS: ATTEND Surgery
DX: D24.2 Benign neoplasm of left breast (principal); I10 Essential (primary) hypertension
CPT/HCPCS: 88307; 76098; 19281; 19301; C1819; J2250; J0330; J1644; J1100; J0690; J2405; J2003; J3010; J1885; J2704; Q9968

== ENCOUNTER → 2025-05-12 | Outpatient (CLI) | payer MEDICARE ==
[2025-05-12 10:33] VITALS: BP 142/80; PULSE 55; RESP 16; TEMP 97.9
--- NOTE | 2025-05-12 10:40 | P.BCPO ---
Progress Note - Text Progress Note Date: 05/12/25 Patient is status post left breast needle localization biopsy on 05-02-25. Her pathology was intraductal papilloma with atypia. She tolerated the procedure without difficulty. We have discussed meeting with medical oncology for possible chemoprophylaxis and at this time she has declined. Examination: Lungs: Clear Heart: Regular rate and rhythm Incision: Clean and dry Impression: Left breast needle localization excisional lumpectomy intraductal papilloma with atypia healing well Plan: Close surveillance Repeat left breast mammogram in 6 months with examination at that time Patient to follow-up sooner any questions or concerns Patient will be due for bilateral mammogram February 2026 with appointment at that time CC: Dr. Davis
== END ==
LOC: WWCWWP 10:12
PROVIDERS: ATTEND Surgery
DX: D24.2 Benign neoplasm of left breast (principal); Z98.890 Other specified postprocedural states